=== PATIENT | female | born 2000 | race Caucasian/White ===

== ENCOUNTER 2024-04-11 12:12 | Emergency (ER) | payer SELFPAY ==
[~2024-04-11] VITALS: Ht 165.1 cm; Wt 65.0 kg
[2024-04-11 12:15] VITALS: O2SAT 99
[2024-04-11 13:22] LABS: BASOPHILS % 0.7 % (0.0-2.0); EOSINOPHILS % 4.2 % (0.0-5.0); HEMOGLOBIN. 14.1 g/dL (12.0-16.0); LYMPHOCYTES % 33.2 % (20.0-50.0); MEAN CORPUSCULAR HGB CONC 33.5 g/dL (31.0-37.0); MEAN CORPUSCULAR VOLUME 92.6 fL (81.0-99.0); MEAN PLATELET VOLUME 6.7 fl (7.4-10.4); MONOCYTES % 6.6 % (2.0-8.0); NEUTROPHILS % 55.3 % (40.0-76.0); PLATELET 472 x1000/uL (130-400); RED BLOOD CELL COUNT 4.54 mill/uL (4.2-5.4); RED CELL DISTRIBUTION WIDTH 13.9 % (11.6-14.6); WHITE BLOOD COUNT 5.8 x1000/uL (4.5-11.0)
[2024-04-11 13:24] LABS: CHLORIDE 105 mEq/L (98-107); POTASSIUM 3.8 mEq/L (3.5-5.1); SODIUM 136 mEq/L (136-145)
[2024-04-11 13:25] LABS: CARBON DIOXIDE 27 mEq/L (21-32)
[2024-04-11 13:26] LABS: CALCIUM 9.5 mg/dL (8.7-10.4)
[2024-04-11 13:30] LABS: CREATININE 0.7 mg/dL (0.6-1.0); GLUCOSE 80 mg/dL (70-105)
[2024-04-11 13:31] LABS: UREA NITROGEN BLOOD 13 mg/dL (9-23)
[2024-04-11 13:32] LABS: ACETAMINOPHEN < 2 ug/mL (10-30)
[2024-04-11 13:33] LABS: HCG SCREEN NEGATIVE
[2024-04-11 13:48] LABS: ETHANOL BLOOD < 10 mg/dL (<10)
[2024-04-12 17:32] LABS: CLARITY URINE TURBID (CLEAR); COLOR URINE ORANGE (YELLOW); GLUCOSE URINE NEGATIVE (NEGATIVE); KETONES URINE TRACE (NEGATIVE); LEUKOCYTE ESTERASE URINE 2+ (NEGATIVE); NITRITE URINE POSITIVE (NEGATIVE); OCCULT BLOOD URINE 3+ (NEGATIVE); PH URINE 5.5 (4.5-8.0); PROTEIN URINE TRACE (NEGATIVE); SPECIFIC GRAVITY URINE 1.027 (1.005-1.030); UROBILINOGEN URINE 0.2 E.U./dL (0.2-1.0)
[2024-04-12 17:53] LABS: *AMPHETAMINES SCREEN URINE PRESUMPTIVE POSITIVE (NEGATIVE); *BARBITURATES SCREEN URINE NEGATIVE (NEGATIVE); *BENZODIAZEPINES SCREEN URINE NEGATIVE (NEGATIVE); *COCAINE SCREEN URINE NEGATIVE (NEGATIVE); CANNABINOID URINE SCREEN PRESUMPTIVE POSITIVE (NEGATIVE); ECSTASY MDMA SCREEN URINE NEGATIVE (NEGATIVE); METHADONE URINE SCREEN NEGATIVE (NEGATIVE); OPIATES URINE SCREEN NEGATIVE (NEGATIVE); PHENCYCLIDINE URINE SCREEN NEGATIVE (NEGATIVE)
[2024-04-12 18:09] LABS: BACTERIA URINE 3+; RBC URINE 15-25 /hpf (0-2); SQUAMOUS EPITHELIAL CELL URINE 1+ /lpf (RARE/1+); WBC URINE 50-100 /hpf (0-2)
[2024-04-13] MEDS: SULFAMETHOXAZOLE/TRIMETHOPRIM 800/160MG TABLET PO NR ×2 (02:33→18:55)
[2024-04-13] MEDS ORDERED: SULFAMETHOXAZOLE/TRIMETHOPRIM 800/160MG TABLET PO ONE (14:15)
[2024-04-13] MEDS: LORAZEPAM 2MG/ML INJ IV ONE (16:00)
[2024-04-13] MEDS: HALOPERIDOL LACTATE 5MG/ML VIAL IM ONE (16:00)
[2024-04-13 16:16] LABS: AMMONIA 22 uMol/L (<32)
[2024-04-13 16:17] LABS: ALANINE AMINOTRANSFERASE 24 IU/L (10-49); ASPARTATE AMINOTRANSFERASE 14 IU/L (<34)
[2024-04-13 16:18] LABS: BILIRUBIN DIRECT < 0.1 mg/dL (<=3.0); BILIRUBIN TOTAL 0.2 mg/dL (0.1-1.0); PROTEIN TOTAL 6.9 g/dL (6.0-8.3); TROPONIN I HIGH SENSITIVITY < 4 ng/L (3.0-34)
[2024-04-13] MEDS: LORAZEPAM 2MG/ML INJ IM ONE (20:50)
[2024-04-14 08:00] VITALS: BP 110/71; PULSE 73; RESP 16; TEMP 36.16956; O2SAT 99
== END 2024-04-14 11:54 | disposition home or self-care (01) ==
LOC: ER 12:12
DX: R46.2 Strange and inexplicable behavior (principal); I49.9 Cardiac arrhythmia, unspecified; Z20.822 Contact with and (suspected) exposure to COVID-19
CPT/HCPCS: 80076; 80305; 80048; 81003; 80307; 80329; 80320; 82140; 82962; 84703; 84443; 85025; 87086; 84484; 36415; 93005 ×2; 99285; 87426; 70450; J2060; G0480